=== PATIENT | male | born 1995 | race African-American/Black ===

== ENCOUNTER 2018-10-21 09:35 | Inpatient (IN) | payer MEDICAID ==
[~2018-10-21] VITALS: Ht 182.9 cm; Wt 73.5 kg
[2018-10-21] MEDS ORDERED: ONDANSETRON HCL/PF 4 MG/2 ML VIAL ONE (09:47)
[2018-10-21] MEDS ORDERED: LORAZEPAM INJ 2 MG/ML VIAL ONE (09:47)
[2018-10-21 09:59] LABS: BASOPHILS # (AUTO) 0.1 /CMM (0.0-0.2); HEMOGLOBIN 15.4 g/dL (13.5-17.5); MONOCYTES # (AUTO) 0.5 /CMM (0.1-1.30); MONOCYTES % (AUTO) 3.4 % (2.0-12.0)
[2018-10-21] MEDS ORDERED: ONDANSETRON HCL/PF 4 MG/2 ML VIAL IVP ONE (10:00)
[2018-10-21] MEDS ORDERED: IV NS 0.9% 1,000 ML BAG IV ONE (10:00)
[2018-10-21] MEDS ORDERED: LORAZEPAM INJ 2 MG/ML VIAL IV ONE (10:00)
[2018-10-21 10:03] LABS: BASOPHILS % (AUTO) 0.4 % (0.0-2.0); EOSINOPHILS % (AUTO) 0.2 % (0.0-6.0); HEMATOCRIT 45 % (39-51); LYMPHOCYTES % (AUTO) 7.1 % (20.0-44.0); MEAN CORPUSCULAR HGB CONC 34 g/dl (31.0-36.0); MEAN CORPUSCULAR VOLUME 88 fL (80-96); NEUTROPHILS % (AUTO) 88.9 % (43.0-81.0); PLATELET COUNT (AUTO) 256 /CMM (150-450); RED BLOOD CELL COUNT(AUTO) 5.17 MIL/uL (4.5-6.0); WHITE BLOOD COUNT (AUTO) 14.6 K/uL (4.3-11.0)
[2018-10-21 10:06] LABS: CALCIUM, SERUM 8.9 mg/dL (8.5-10.1); CARBON DIOXIDE 25 mmol/L (21-32); CHLORIDE 96 mmol/L (98-107); CREATININE 2.4 mg/dL (0.6-1.3); GLUCOSE 72 mg/dL (74-106); POTASSIUM 2.9 mmol/L (3.5-5.1); SODIUM SERUM 139 mmol/L (136-145); UREA NITROGEN, BLOOD 32 mg/dL (7-18)
[2018-10-21 10:12] LABS: ALANINE AMINOTRANSFERASE 43 U/L (12-78); ALBUMIN 4.5 g/dL (3.4-5.0); ALCOHOL, BLOOD < 3 mg/dL (0-0); ALKALINE PHOSPHATASE 102 U/L (46-116); ASPARTATE AMINOTRANSFERASE 82 U/L (15-37); BILIRUBIN,DIRECT 0.7 mg/dL (0.0-0.2); BILIRUBIN,TOTAL 2.9 mg/dL (0.2-1.0); SALICYLATE < 2.8 mg/dL (2.8-20.0); TOTAL PROTEIN, SERUM 8.6 g/dL (6.4-8.2)
[2018-10-21 10:13] LABS: APPEARANCE,URINE Cloudy (CLEAR); BILIRUBIN,URINE MODERATE (NEGATIVE); BLOOD, URINE Moderate Ery/uL (NEGATIVE); KETONES,URINE 15 (NEGATIVE); LEUKOCYTE ESTERASE ,URINE Negative (NEGATIVE); NITRITE, URINE Negative (NEGATIVE); PH,URINE 5.5 (5.0-8.0); PROTEIN,URINE >=300 mg/dl (NEGATIVE); UGLUCOSE Negative (NEGATIVE)
[2018-10-21 10:14] LABS: COLOR,URINE DARK YELLOW (YELLOW)
[2018-10-21 10:18] LABS: BACTERIA,URINE Few /HPF (None Seen)
[2018-10-21 10:19] LABS: SQUAMOUS EPITHELIAL CELL,UR Moderate /HPF (None Seen); URINE AMORPHOUS URATE Moderate /HPF (None Seen)
[2018-10-21] MEDS ORDERED: IV NS 0.9% 1,000 ML IV ONE (10:30)
--- NOTE | 2018-10-21 10:50 | NUR ---
PT REC'D TO ER VIA EMS PT WS FOUND IN ALLEY NAKED ON CRYSTAL METH . IV STARTED LET AC 18G IVP LABS DRAWNS SENT [facility]
--- NOTE | 2018-10-21 10:51 | NUR ---
MEDS GIVEN PER MD ORDER VSS POLICEAT DOOR STRAIGHT CATH UA SENT TO LAB
--- NOTE | 2018-10-21 10:51 | NUR ---
PT SLEEPING SONDLY RESP EVEN UNLABORED AWAITING EVALUATION BY ER PROVIDER.
--- NOTE | 2018-10-21 11:10 | NUR ---
HOUSE SUP WAS CALLED FOR MS BED
[2018-10-21] MEDS ORDERED: METH500T PO (11:21)
[2018-10-21] MEDS ORDERED: OLAN5TAB3 PO (11:21)
--- NOTE | 2018-10-21 11:28 | NUR ---
MS BED 106 GIVEN
[2018-10-21 12:00] VITALS: BP 128/74
[2018-10-21] MEDS ORDERED: ACETAMINOPHEN 325 MG TABLET PO PRN (12:00)
[2018-10-21] MEDS ORDERED: POTASSIUM CL. PREMIX PERIPHER. 50 ML IV ONE (12:00)
[2018-10-21] MEDS ORDERED: ONDANSETRON HCL/PF 4 MG/2 ML VIAL IVP PRN (12:00)
[2018-10-21] MEDS ORDERED: ZOLPIDEM TARTRATE 5 MG TABLET PO PRN (12:00)
[2018-10-21] MEDS ORDERED: MAGNESIUM HYDROXIDE 30 ML UDC PO PRN (12:00)
[2018-10-21] MEDS ORDERED: MAG HYDROX/AL HYDROX/SIMETH 30 ML UDC PO PRN (12:00)
[2018-10-21] MEDS ORDERED: LORAZEPAM INJ 2 MG/ML VIAL IV PRN (12:00)
--- NOTE | 2018-10-21 12:10 | NUR ---
DIRECTOR OF ORTHOPEDICS NOTES RECEIVED REPORT FROM ER NURSE. PATIENT CAME VIA GURNEY. AND WALKED TO HIS BED. PATIENT VERY LETHARGIC AND MOVES A LOT. NO COMPLAINS OF ANY PAIN OR SOB. PATIENT HAD A BOWEL MOVEMENT, FRAMING MILL OPERATOR IS CURRENTLY CLEANING THE PATIENT. PAGED MD TO ORDER CDIFF. AND CENTRAL SUPPLY FOR AN ISOLATION CART. POSSIBLE CDIFF DUE TO FOUL SMELL AND DIARRHEA. HAS A LEFT AC #18 WITH AN ORDER OF NS AT 125 ML/HR. POSITIVE FOR AMPHETAMINE AND CANNABINOIDS. ON ROOM AIR. BASED ON REPORT, PATIENT WAS FOUND THE ALLEY NAKED. WILL CONTINUE TO MONITOR CLOSELY
[2018-10-21] MEDS: IV NS 0.9% 1,000 ML IV PRN (12:19)
[2018-10-21] MEDS: OLANZAPINE 5 MG TABLET PO SCH (12:19)
--- NOTE | 2018-10-21 12:22 | NUR ---
PT TRANSFERED TO FLOOR STABLE
[2018-10-21 16:00] VITALS: BP_SYST 112; BP_SYST 128; BP_DIAS 74; BP_DIAS 76
--- NOTE | 2018-10-21 16:54 | NUR ---
RN NOTES PATIENT'S IV SITE WAS LEAKING AND IS HURTING HIM. NO BLOOD RETURN. MULTIPLE IV INSERTION ATTEMPTS BY TWO RNs ON FLOOR AND ICU NURSE. ORDERED A MIDLINE, PSYCH ARNP MADE AWARE
--- NOTE | 2018-10-21 17:42 | NUR ---
RN NOTES PATIENT HAD HIS SECOND DIARRHEA, WATERY AND HAS A FOUL SMELL. MD AWARE. PATIENT IS INCONTINENT AND IS USING THE DIAPER FOR BM AND URINE. PATIENT VERY CONFUSED, ALERT TO SELF ONLY
[2018-10-21 18:03] LABS: CALCIUM, SERUM 8.4 mg/dL (8.5-10.1); CREATININE 1.6 mg/dL (0.6-1.3); POTASSIUM 3.2 mmol/L (3.5-5.1)
--- NOTE | 2018-10-21 18:29 | NUR ---
RN NOTES STILL WAITING FOR MIDLINE INSERTION. PATIENT IS DRINKING A LOT OF WATER FOR HYDRATION.
--- NOTE | 2018-10-21 18:34 | NUR ---
RN CLOSING NOTES PATIENT ASLEEP, BUT EASILY AROUSABLE BY NAME. NO COMPLAINS OF ANY PAIN OR SOB. MIDLINE INSERTION STILL PENDING. PATIENT IS ONLY ALERT TO SELF. ALL NEEDS MET. BED BATH AND CHANGED SOILED DIAPER TWICE DUE TO DIARRHEA. BED LOCKED AND IN LOWEST POSITION. CALL LIGHT WITHIN REACH. WILL ENDORSE TO NOC SHIFT FOR ROSAURA
--- NOTE | 2018-10-21 19:30 | NUR ---
TELE/RN NOTES RECEIVED PATIENT IN BED, RESTING COMFORTABLY AT THIS TIME. NO S/S OF ACUTE DISTRESS NOTED. RESP EVEN AND UNLABORED. NO SOB NOTED. NO S/S OF PAIN OR DISCOMFORT NOTED AT THIS TIME. PATIENT ON CONTACT ISOLATION FOR C-DIFF. CONTACT PRECAUTIONS MAINTAINED AND STRICTLY OBSERVED. IV SITE ON LEFT AC #18 NOTED WITH NO S/S OF INFECTION, RUNNING NS AT 125 ML/HR. SAFETY MAINTAINED. BED AT THE LOWEST SETTING. LOCKED. CALL LIGHT WITHIN REACH WILL CONTINUE TO MONITOR PATIENT PER PLAN OF CARE.
--- NOTE | 2018-10-21 19:36 | NUR ---
RN NOTE MIDLINE INSERTED BY BERNARDA FRANKLIN AT RYNE # 18 G, WELL SECURED, PATENT WITH GOOD BLOOD RETURN, PROCEDURE WELL TOLERATED PT DENIES ANY PAIN AT THIS TIME, WILL CONT' TO MONITOR SITE, PT INSTRUCTED NOT TO TOUCH SITE OR RUB OR PULL ON SITE.
[2018-10-21 20:00] VITALS: BP 121/72
[2018-10-22] VITALS: BP 128/65
[2018-10-22 04:00] VITALS: BP 110/70
[2018-10-22] MEDS: IV NS 0.9% 1,000 ML IV PRN (05:53)
[2018-10-22 06:34] LABS: BASOPHILS % (AUTO) 0.5 % (0.0-2.0); EOSINOPHILS % (AUTO) 1.8 % (0.0-6.0); HEMATOCRIT 38 % (39-51); HEMOGLOBIN 13.1 g/dL (13.5-17.5); LYMPHOCYTES # (AUTO) 2.1 /CMM (0.8-4.8); LYMPHOCYTES % (AUTO) 24.3 % (20.0-44.0); MEAN CORPUSCULAR HGB CONC 34 g/dl (31.0-36.0); MEAN CORPUSCULAR VOLUME 88 fL (80-96); MONOCYTES # (AUTO) 0.4 /CMM (0.1-1.30); MONOCYTES % (AUTO) 4.8 % (2.0-12.0); NEUTROPHILS # (AUTO) 5.9 /CMM (1.8-8.9); NEUTROPHILS % (AUTO) 68.6 % (43.0-81.0); PLATELET COUNT (AUTO) 193 /CMM (150-450); RED BLOOD CELL COUNT(AUTO) 4.37 MIL/uL (4.5-6.0); WHITE BLOOD COUNT (AUTO) 8.6 K/uL (4.3-11.0)
--- NOTE | 2018-10-22 06:42 | NUR ---
TELE/RN EXIT NOTES PATIENT IN NO ACUTE DISTRESS. RESPIRATION EVEN AND UNLABORED. NO SOB NOTED. NO S/S OF PAIN OR DISCOMFORT NOTED. I WAS ENDORSED BY LAST SHIFT NURSE TO COLLECT STOOL FOR C-DIFF. PATIENT DID NOT HAVE BM. WILL ENDORSE AM SHIFT NURSE TO COLLECT STOOL FOR SAMPLE. THE SAFETY MAINTAINED. BED AT THE LOWEST POSITION. CALL LIGHT WITHIN REACH. WILL ENDORSE AM SHIFT NURSE FOR ROSAURA.
[2018-10-22 06:52] LABS: CALCIUM, SERUM 7.9 mg/dL (8.5-10.1); CREATININE 1.2 mg/dL (0.6-1.3); MAGNESIUM 2.6 mg/dL (1.8-2.4); PHOSPHORUS 3.5 mg/dL (2.5-4.9); POTASSIUM 3.1 mmol/L (3.5-5.1)
[2018-10-22] MEDS: PANTOPRAZOLE 40 MG TABLET.DR PO SCH ×2 (07:30→08:08)
[2018-10-22 08:00] VITALS: BP 130/76
[2018-10-22] MEDS: OLANZAPINE 5 MG TABLET PO SCH ×2 (08:09→08:34)
[2018-10-22] MEDS: POTASSIUM CL. PREMIX PERIPHER. 50 ML IV SCH ×4 (10:23→14:50)
[2018-10-22 12:00] VITALS: BP 126/80
[2018-10-22 16:00] VITALS: BP 118/73
[2018-10-22 20:00] VITALS: BP 113/83
--- NOTE | 2018-10-22 20:08 | NUR ---
RN MED NORY PM OPENING NOTES: PATIENT IN NO ACUTE DISTRESS. RESPIRATION EVEN AND UNLABORED. NO SOB NOTED. NO S/S OF PAIN OR DISCOMFORT NOTED. PT IS ALERT AND AMBULATORY TIMES 4. GAVE DIRECTION TO LET HIM KNOW WHEN HE HAS A BM TO COLLECT STOOL FOR CDIFF. DUE TO THE ENDORSEMENT BY AM NURSE PATIENT DID NOT HAVE BM. W. THE SAFETY MAINTAINED. BED AT THE LOWEST POSITION. CALL LIGHT WITHIN REACH. WILL CONTINUE TO MONITER AND CARRY OUT PLAN OF CARE.
[2018-10-23] VITALS: BP 113/83
[2018-10-23 02:00] VITALS: BP 113/74
[2018-10-23 04:00] VITALS: BP 113/74
--- NOTE | 2018-10-23 07:25 | NUR ---
MS/RN OPENING NOTE THE PATIENT IS RECEIVED IN BED. ALERT AND ORIENTED X2. ABLE TO MAKE NEEDS KNOWN VERBALLY. IN ROOM AIR AND DENIES SOB. RESPIRATION REGULAR AND UNLABORED. DENIES PAIN. NO IV SITE. BED LOW AND LOCKED. SIDE RAILS UP X3. CALL LIGHT WITHIN REACH. WILL CONTINUE TO MONITOR.
[2018-10-23 08:00] VITALS: BP_SYST 121; BP_DIAS 72; BP_DIAS 77
[2018-10-23] MEDS: PANTOPRAZOLE 40 MG TABLET.DR PO SCH (09:07)
[2018-10-23] MEDS: OLANZAPINE 5 MG TABLET PO SCH (09:07)
--- NOTE | 2018-10-23 10:07 | NUR ---
Social service consult requested by VALERIA Guillory for homelessness and drug use. Pt. is a 23 year old male who was admitted to [facility] for Rhabdomyolysis and renal failure. CASPER met with pt. bedside. Pt. is alert and oriented x 4. Pt. appears disheveled. Pt. has tattoos on his arms. Pt. is cooperative and friendly with SW during the assessment. Pt. states he has been homeless for about a year. Prior to being homeless, pt. was residing with his mother in [place]. Pt. recently got out of [facility] a week ago. Pt's postal delivery officer is Kenneth located at the [facility] at [address] . Pt. states he drinks alcohol socially. Pt. uses methamphetamines every now and then. Pt. last used methamphetamines on day of arrival at [facility] (10/21). SW encouraged pt. to attend a drug treatment program. Pt. informed SW that his probation officer is going to be assisting him with a program. Pt. is willing to accept referrals from to drug treatment programs. Pt. states he smokes weed daily. CASPER offered pt. homeless [facility] placement, however pt. declined. Pt. states, he will accept homeless resources from . Pt. states he has been diagnosed with Schizophrenia. Pt. is currently taking Zyprexa for his disorder. Pt. denies any suicidal and homicidal ideations and visual/auditory hallucinations at this time. Pt. will be seen by psychiatrist prior to discharge. CASPER updated RN Marie with the aforementioned information and requested her to contact when there is a discharge and CASPER will give pt. homeless resources.
[2018-10-23 12:13] LABS: CALCIUM, SERUM 8.2 mg/dL (8.5-10.1); POTASSIUM 3.7 mmol/L (3.5-5.1)
--- NOTE | 2018-10-23 15:17 | NUR ---
CASPER met with pt's RN Marie in SW's office in regards to pt. needing clothing and shoes. CASPER gave pt's RN Marie shoes and pair of pants and shirt for the pt. Homeless patient waiver form and the following list of homeless/ drug treatment resources where given to the pt: [facility] located at [address] ; [facility], [address] [place] [address] [place] ; [facility], [address] ; [facility] Homeless Resource Directory which includes food stamps, transitional housing, showers and hot meals etc; Mental Health clinics such as [facility] ; [facility] ; Health clinics;[facility] and Alcohol treatment centers such as [facility], ; [facility] Substance Abuse Hotline and [facility] .
[2018-10-23 16:00] VITALS: BP 97/67
--- NOTE | 2018-10-23 16:00 | NUR ---
MS/RN NOTE THE PATIENT IS SEEN Y DR LAKE AND CLEAR THE PATIENT FOR DISCHARGE.
--- NOTE | 2018-10-23 18:00 | NUR ---
MS/RN CLOSING NOTE THE PATIENT ALERT AND ORIENTED X3. IN ROOM AIR AND DENIES SOB. RESPIRATION REGULAR AND UNLABORED. OXYGEN SATURATION IN ROOM AIR AT 98%. DENIES PAIN. DISCHARGE EDUCATION PRVIDED AND HE VERBALIZED UNDERSTANDING. PATIENT IS GIVEN TAP CARD. PATIENT LEFT THE HOSPITAL IN STABLE CONDITION.
== END 2018-10-23 18:06 | disposition home or self-care (01) | DRG 351 ==
LOC: ER 09:39 → MEDSG1 11:34 → TELE1 13:31 → MEDSG1 10-22 14:35
PROVIDERS: ADMIT Nurse Practitioner Acute Care; ATTEND Nurse Practitioner Acute Care
PROC: 05H533Z Insertion of Infusion Device into Right Subclavian Vein, Percutaneous Approach (ICD-10-PCS; principal; 2018-10-21)
PROC: B546ZZA Ultrasonography of Right Subclavian Vein, Guidance (ICD-10-PCS; principal; 2018-10-21)
DX: M62.82 Rhabdomyolysis (principal); N17.0 Acute kidney failure with tubular necrosis; E86.9 Volume depletion, unspecified; E87.6 Hypokalemia; D72.829 Elevated white blood cell count, unspecified; Z59.0 Homelessness; R74.0 Nonspecific elevation of levels of transaminase and lactic acid dehydrogenase [LDH]; F20.9 Schizophrenia, unspecified; F15.159 Other stimulant abuse with stimulant-induced psychotic disorder, unspecified; F12.159 Cannabis abuse with psychotic disorder, unspecified
CPT/HCPCS: 36415; 80048-TC; 80076-TC; 80305; 81000-TC; 82550-TC; 83735-TC; 84100-TC; 85025-TC; 87081-TC; 87086-TC; G0378; G0480; J2060; J2405; J3480; J7030